=== PATIENT | female | born 1995 | race Caucasian/White ===

== ENCOUNTER 2016-09-23 16:25 | Inpatient (IN) ==
[2016-09-26] MEDS ORDERED: HYDROCORTISONE 2.5% CREAM 30gm RECTALLY PRN (00:53)
[2016-09-26] MEDS ORDERED: DiphenhydrAMINE 25 MG CAPSULE PO PRN (05:00)
[2016-09-26] MEDS ORDERED: CALCIUM CARBONATE Chewable 500mg TABLET PO PRN (05:00)
[2016-09-26] MEDS ORDERED: ACETAMINOPHEN 500 MG TABLET PO PRN (05:00)
[2016-09-26] MEDS: PRENATAL VITAMIN TABLET PO SCH (09:50)
[2016-09-26] MEDS: DOCUSATE CALCIUM 240 MG CAPSULE PO SCH (09:50)
[2016-09-26] MEDS: OMEPRAZOLE 20 MG CAPSULE PO SCH (10:09)
[2016-09-26] MEDS: D5LR 1,000 ML IV SCH (10:09)
[2016-09-26] MEDS: HYDROCODONE/APAP 5mg/325mg TABLET PO PRN ×3 (12:03→21:28)
[2016-09-26] MEDS: IBUPROFEN 800 MG TABLET PO PRN ×2 (12:03→21:29)
[2016-09-26] MEDS: SIMETHICONE 80 MG CHEWABLE TABLET PO SCH ×2 (12:04→14:53)
--- NOTE | 2016-09-26 16:53 | OB/GYN Progress Note ---
OB-PP Progress Note - General POD:: POD1 Group B Streptococcal Result: Positive Rubella OB HPI: immune - Subjective Date: 09/26/16 Lochia: Minimal Pain: contolled Voiding: voiding Nausea or Vomiting Present: No - Objective General: alert and oriented Abdomen: non-tender, soft, non-distended Incision: normal, intact Edema: none Laboratory: 09/26/16 04:45 - Assessment Assessment: SP, Primary C/S, Anemia, GBS positive - Plan Plan: routine care, continue PNV
[2016-09-27] MEDS: HYDROCODONE/APAP 5mg/325mg TABLET PO PRN ×4 (01:52→18:30)
[2016-09-27] MEDS: D5LR 1,000 ML IV SCH ×2 (02:28→02:29)
[2016-09-27] MEDS: SIMETHICONE 80 MG CHEWABLE TABLET PO SCH ×3 (02:31→14:12)
[2016-09-27] MEDS: IBUPROFEN 800 MG TABLET PO PRN ×2 (07:44→15:45)
[2016-09-27] MEDS: DOCUSATE CALCIUM 240 MG CAPSULE PO SCH ×2 (07:45→10:08)
[2016-09-27] MEDS: OMEPRAZOLE 20 MG CAPSULE PO SCH (07:45)
[2016-09-27] MEDS: PRENATAL VITAMIN TABLET PO SCH (09:18)
--- NOTE | 2016-09-27 10:44 | OB/GYN Progress Note ---
OB-PP Progress Note - General POD:: POD2 Group B Streptococcal Result: Positive Rubella OB HPI: immune - Subjective Date: 09/27/16 Lochia: Minimal Pain: contolled Voiding: voiding Nausea or Vomiting Present: No - Objective Vital Signs: Last Vital Signs Temp 98.2 F 09/27/16 01:55 Pulse 83 09/27/16 01:55 Resp 16 09/27/16 01:55 BP 133/64 09/27/16 01:55 Pulse Ox 97 09/27/16 01:55 General: alert and oriented Abdomen: non-tender, no rebound, no guarding Incision: normal, intact Extremities: non-tender Laboratory: 09/26/16 04:45 - Assessment Assessment: SP, Primary C/S, Anemia, GBS positive - Plan Plan: routine care, discharge home, continue PNV
[2016-09-27] MEDS ORDERED: HEPATITIS B VACCINE 20 MCG/ML IM ONE (10:45)
--- NOTE | 2016-09-27 11:25 | Discharge Summary ---
OB Discharge Summary Date: 09/27/16 Estimated Blood Loss:: 700 cc Procedures: baker bulb, cervidil, antibiotics for GBS, pitocin for induction Labor Procedures: IUPC/IUPM, direct monitoring, AROM, Epidural Delivery: Primary Treatment: Ampicillin - Final Diagnosis anemia, GBS positive, failure to progress : 1 Para: 1 (1) delivery, delivered, current hospitalization Status: Acute Weeks: 40 Days: 4 Sex and Viability: viable female Comment: [place] Name: Ashley Abdullahi Weight: 3.289 kg Consultations: 09/25/16 20:44 Nurse Consult [CONS] Routine Comment: Instructions: Discharge Instructions: Maternal Child Mother Dismissal Instructions Given (diet, activity, and medications, follow-up) Home Medications: Home Medications Medication Instructions Recorded Confirmed Type Omeprazole 40 mg PO DAILY #0 cap 09/03/16 09/25/16 History Vit No.130/Iron/Folic 1 tab PO DAILY #0 tab 09/03/16 09/25/16 History [ Tablet] Discharge Plan - Med Rec/Dispo Referrals/Follow Up: Nayana Lehman MD [Physician] - Additional Instructions: 2 weeks Prescriptions: New Docusate Calcium [Surfak] 240 mg PO DAILY #30 cap Hydrocodone/APAP 5/325 [[place] 5/325] 1 - 2 tab PO Q4H PRN #30 PRN Reason: Pain Ibuprofen [Motrin] 800 mg PO Q8H PRN #30 PRN Reason: Pain Continue Omeprazole 40 mg PO DAILY #0 cap Vit No.130/Iron/Folic [ Tablet] 1 tab PO DAILY #0 tab - Disposition 01 Discharged Home, Self-Care
== END 2016-09-27 19:06 | disposition home or self-care (01) | DRG 766 ==
LOC: MC 16:25
PROVIDERS: ADMIT Obstetrics & Gynecology; ATTEND Obstetrics & Gynecology